=== PATIENT | male | born 1970 | race Caucasian/White ===

== ENCOUNTER 2018-05-31 13:30 | Emergency (ER) | payer SELFPAY ==
[~2018-05-31] VITALS: Ht 165.1 cm; Wt 84.1 kg
[2018-05-31 13:34] VITALS: Ht 165.1 cm; Wt 84.1 kg
[2018-05-31 13:59] LABS: EOSINOPHILS 1.7 % (0-7); HEMATOCRIT 45.8 % (42.0-54.0); HEMOGLOBIN 16.1 g/dL (13.5-17.5); IMMATURE GRANULOCYTES 0.1 % (0-5); LYMPHOCYTES 37.1 % (15-50); MCH 31.1 pg (26.0-34.0); MCHC 35.2 g/dL (31.0-37.0); MCV 88.4 fL (80.0-100.0); MEAN PLATELET VOLUME 9.6 fL (7.4-10.4); MONOCYTES 9.8 % (2-11); NEUTROPHILS 50.3 % (40-80); PLATELET COUNT 213 10x3/uL (130-400); RBC 5.18 10x6/uL (4.20-6.10); RDW 12.7 % (11.5-14.5)
[2018-05-31 14:13] LABS: ALBUMIN 3.8 g/dL (3.4-5.0); ALKALINE PHOSPHATASE 63 U/L (46-116); ALT (SGPT) 40 U/L (10-68); BILIRUBIN - TOTAL 0.41 mg/dL (0.2-1.3); CALC OSMOLALITY 283 mosm/kg (275-300); CALCIUM 9.1 mg/dL (8.5-10.1); CARBON DIOXIDE 26.6 mmol/L (21.0-32.0); CHLORIDE - SERUM 103 mmol/L (98-107); GLUCOSE 129 mg/dL (74-106); POTASSIUM - SERUM 3.5 mmol/L (3.5-5.1); PROTEIN - SERUM 7.4 g/dL (6.4-8.2); SODIUM 141 mmol/L (136-145); UREA NITROGEN 16 mg/dL (7-18); eGFR NON AFRICAN AMERICAN 85 mL/min (90-120)
[2018-05-31 14:17] LABS: TROPONIN-I < 0.017 ng/mL (0.000-0.060)
[2018-05-31] MEDS ORDERED: ANTIVERT12.5 MG PO (15:25)
[2018-05-31 16:06] VITALS: BP 137/90
== END 2018-05-31 16:08 | disposition home or self-care (01) ==
LOC: D.ER 13:30
PROVIDERS: Family Medicine
DX: R42 Dizziness and giddiness (principal); R53.1 Weakness